=== PATIENT | female | born 1955 | race Caucasian/White ===

== ENCOUNTER 2020-12-20 09:33 | Outpatient (CLI) | payer BC, SELFPAY ==
--- NOTE | 2020-12-20 10:02 | ECHO_ITS ---
Patient Info Name: Stephanie Bhatia Age: 65 years : 1955 Gender: Female Ht: 66 in Wt: 225 lbs BSA: 2.22 m2 HR: 72 bpm BP: 183 / 91 mmHg Exam Date: 12/20/2020 10:09 AM Exam Location: [facility] Patient Status: Outpatient Admit Date: 12/20/2020 Staff Ordering Physician: Edis Howe DO Data Processing Mechanic: Vandana Bledsoe RDCS Attending Provider: Edis Howe DO Exam Type: CA echo doppler color flow Study Info Indications R00.2 - Palpitations Complete two-dimensional, color flow and Doppler transthoracic echocardiogram is performed. Summary 1. Complete two-dimensional, color flow and Doppler transthoracic echocardiogram is performed. 2. Left ventricular chamber dimension is normal. 3. Left ventricular systolic function is normal, estimated at 55-60%. 4. There is mildly increased left ventricular wall thickness. 5. The left ventricular diastolic function is grade I diastolic dysfunction. 6. E/e' 7 is not elevated. 7. Left atrial chamber dimension is mildly enlarged. 8. There is trace mitral valve regurgitation. 9. There is trace tricuspid valve regurgitation. 10. No pulmonary hypertension, estimated pulmonary arterial systolic pressure is 28 mmHg. Left Ventricle E/e' 7 is not elevated. Left ventricular chamber dimension is normal. Left ventricular systolic function is normal, estimated at 55-60%. There is mildly increased left ventricular wall thickness. The left ventricular diastolic function is grade I diastolic dysfunction. Right Ventricle Right ventricular chamber dimension is normal. Right ventricular systolic function is normal. Left Atria Left atrial chamber dimension is mildly enlarged. Right Atria Right atrial chamber dimension is normal. Aortic Valve The aortic valve is trileaflet. There is no aortic valve stenosis. There is no aortic valve regurgitation. Pulmonic Valve There is no pulmonic regurgitation. Mitral Valve There is no mitral valve stenosis. There is trace mitral valve regurgitation. Tricuspid Valve There is trace tricuspid valve regurgitation. No pulmonary hypertension, estimated pulmonary arterial systolic pressure is 28 mmHg. Pericardium/Pleural There is no pericardial effusion. Inferior Vena Cava Normal inferior vena cava with >50% collapse upon inspiration consistent with normal right atrial pressure, 5 mmHg. Aorta The aortic root size at the sinus of Valsalva is normal. Left Ventricular Outflow Tract Name Value Normal LVOT 2D LVOT Diameter 2.1 cm LVOT Doppler LVOT Peak Gradient 5 mmHg LVOT Mean Gradient 2 mmHg LVOT VTI 25 cm LVOT VTI/AV VTI Ratio 0.9 LVOT Stroke Volume 88 ml LVOT CO 5.5 l/min LVOT CI 2.5 l/min/m2 Pulmonic Valve Name Value Normal
--- NOTE | 2020-12-27 12:49 | WPDHOLTEREM ---
Holter/Event Monitor Holter/Event Monitor Date of procedure: 12/20/20 Procedure Type: 48 hour holter monitor Indications: Palpitations Conclusion: 1. 48 hour holter monitor on 12/20/20. 2. Underlying rhythm is sinus rhythm. HR range 57-140 bpm; average HR 82 bpm. 3. There are 17 premature supraventricular complexes. No supraventricular tachycardia. 4. There are 81 premature ventricular complexes. No ventricular tachycardia. 5. No sinoatrial or atrioventricular blocks. No significant pauses greater than 2 seconds. 6. No symptoms available for correlation.
== END 2020-12-20 09:34 | disposition home or self-care (01) ==
PROVIDERS: PCP Internal Medicine; Visit Provider Internal Medicine
DX: R00.2 Palpitations (principal)
CPT/HCPCS: 93225; 93226; 93306

== ENCOUNTER 2021-03-22 07:43 | Outpatient (CLI) | payer BC, SELFPAY ==
--- NOTE | ~2021-03-22 | US_ITS ---
EXAMINATION: US abdomen complete EXAM DATE: 03/22/2021 10:24 INDICATION: R14.0 - Abdominal distension . TECHNIQUE: Multiple grayscale and Doppler images of the complete abdomen were obtained (by a technolo gist who performed the scan) and subsequently reviewed. There is no prior study for comparison. FINDINGS: The abdominal aorta is normal in caliber. Visualized portion IVC is patent. The pancreatic head a nd body are normal in appearance. The pancreatic tail is not visualized. The liver has normal echogenicity and contour. There is a left liver lobe hyperechoic lesion measuri ng up to 10 mm. Liver lesions are nonspecific by ultrasound, however appearance to this is typical of a hemangioma. There is no evidence of intrahepatic biliary duct dilation. Portal venous flow was s een in the hepatopedal, normal direction and has normal Doppler waveform. Common bile duct measures 6 mm, which is normal. The gallbladder wall is normal in thickness, with ex pected amount of distention. No sonographic evidence of pericholecystic fluid. There is no cholelit hiases. Technologist performing exam reports patient did not demonstrate sonographic Lord's sign. Please note that this sign is less reliable in patients who have received pain medication. Right kidney: There is normal contour and echogenicity. It measures 11.6 x 5.2 x 4.8 centimeters. T here is a cystic region in the midpole with several septations, some portions of which are mildly thi ck. This measures 3.1 x 2.2 x 2.5 cm, Bosniak category 3 lesion. There is no hydronephrosis. Left kidney: There is normal contour and echogenicity. It measures 10.8 x 4.9 x 5.9 centimeters. T here are no focal renal lesions identified. There is no hydronephrosis. The spleen measures 11.4 centimeters and is morphologically normal. IMPRESSION: 1. Right renal complex cystic lesion, Bosniak category 3 (indeterminate). 2. Small left liver lobe lesion, indeterminate but most likely benign. 3. Consider abdomen MRI without and with contrast to further evaluate these. Reviewed, dictated and finalized at location A.
== END 2021-03-22 07:44 | disposition home or self-care (01) ==
LOC: ANHIMG 07:46
PROVIDERS: PCP Internal Medicine; Visit Provider Internal Medicine
DX: R14.0 Abdominal distension (gaseous) (principal); K76.89 Other specified diseases of liver
CPT/HCPCS: 76700

== ENCOUNTER 2021-04-25 16:35 | Outpatient (CLI) | payer BC, SELFPAY ==
--- NOTE | ~2021-04-25 | MR_ITS ---
EXAMINATION: MR abdomen wo/w con DATE: 04/25/2021 17:48 INDICATION: Kidney mass. TECHNIQUE: Magnetic resonance imaging (MRI) of the abdomen was performed without and with 20 mL Multi Prem intravenous contrast. Sequences included coronal T2-weighted FS FSE, coronal and axial FIESTA F S, coronal LAVA-flex, axial LAVA, axial T2-weighted FSE, axial T1-weighted dual-echo FSPGR, axial STI R FSE, and axial DWI. Postcontrast sequences included coronal LAVA-flex and a time course of axial LA VA. COMPARISON: Abdomen ultrasound 03/22/2021, CT abdomen and pelvis 03/12/2015 FINDINGS: There is a diffuse hepatic steatosis. There are cysts in the liver measuring up to 5 mm. The gallblad pallavi, spleen, pancreas, and adrenal glands are normal. There are cysts in the kidneys measuring up to 2.7 cm on the right. Two of the cysts in right kidney demonstrate thin septations without contrast en hancement. There are no dilated loops of bowel. There are no pathologically enlarged lymph nodes. The re is no free intraperitoneal fluid. IMPRESSION: 1. Benign cysts in the kidneys. Reviewed, dictated and finalized at location B.
[2021-04-25 17:10] LABS: Estimated Glomerular Filt Rate > 60
== END 2021-04-25 16:36 | disposition home or self-care (01) ==
LOC: ANHIMG 16:35
PROVIDERS: PCP Internal Medicine; Visit Provider Urology
DX: N28.1 Cyst of kidney, acquired (principal)
CPT/HCPCS: 74183; A9577

== ENCOUNTER 2022-01-11 08:26 | Outpatient (CLI) | payer MEDICARE, SELFPAY ==
--- NOTE | ~2022-01-11 | MM_ITS ---
EXAMINATION: MM screening krystal BI w carl HISTORY: Screening mammogram TECHNIQUE: Craniocaudal and mediolateral oblique 3-D tomosynthesis images were obtained and synthetic 2-D images were generated. CAD analysis was submitted and interpreted. COMPARISON: No prior mammogram is available for comparison at this institution. BREAST PARENCHYMAL COMPOSITION: There are scattered areas of fibroglandular density. FINDINGS: Bilateral mammographic asymmetries are noted including: There is a 3.5 x 7 mm circumscribed opacity in the lower inner right breast (craniocaudal Tomosynthes is 22/76). There is a circumscribed approximately 4.5 x 10 mm opacity in the anterior aspect of the mid to upper inner right breast (craniocaudal Tomosynthesis image 49/76). Possible mass in the outer mid right breast (craniocaudal Tomosynthesis image 36/76. IMPRESSION: 1. Bilateral mammographic asymmetries, possible masses 2. Bilateral diagnostic mammography is recommended, with ultrasound if required BI-RADS Category 0: Incomplete: Needs additional imaging evaluation. Reviewed, dictated and finalized at location A.
== END 2022-01-11 08:27 | disposition home or self-care (01) ==
PROVIDERS: PCP Internal Medicine; Visit Provider Internal Medicine
DX: Z12.31 Encounter for screening mammogram for malignant neoplasm of breast (principal); R92.8 Other abnormal and inconclusive findings on diagnostic imaging of breast
CPT/HCPCS: 77063; 77067

== ENCOUNTER 2022-04-16 14:08 | Outpatient (CLI) | payer MEDICARE, SELFPAY ==
--- NOTE | ~2022-04-16 | CT_ITS ---
EXAMINATION: CT LE RT wo con DATE: 04/16/2022 16:00 INDICATION: Right knee osteoarthritis. TECHNIQUE: Computed tomography (CT) of the right lower limb was performed without intravenous contras t. Automated exposure control and iterative reconstruction technique were employed. The dose-length p roduct was 1681.12 mGy-cm. COMPARISON: Right knee radiographs 10/17/2021 FINDINGS: The right hip demonstrate normal bone alignment. There is mild right hip osteoarthritis. Th ere is a lipoma between the iliopsoas and rectus femoris muscles. The right knee demonstrates severe osteoarthritis of the medial compartment, moderate osteoarthritis of patellofemoral compartment, and mild osteoarthritis of lateral compartment. There is a small knee joint effusion. The ankle demonstra hansa normal bone alignment. The talar dome is normal. IMPRESSION: 1. Severe right knee osteoarthritis. 2. Small right knee joint effusion. Reviewed, dictated and finalized at location A.
--- NOTE | 2022-04-16 14:46 | ECG_ITS ---
Measurements Intervals [place] Rate: 80 P: 67 VA: 177 QRS: 3 QRSD: 98 T: 60 QT: 402 QTc: 465 Interpretive Statements SINUS RHYTHM NO PREVIOUS ECG AVAILABLE FOR COMPARISON Electronically Signed On 04-17-2022 16:23:38 CDT by Juliette Sarah M.D.
[2022-04-16 15:01] LABS: Hematocrit 39.2 % (37.0-47.0); Hemoglobin 12.9 g/dL (12.0-15.0)
[2022-04-16 15:12] LABS: Albumin Level 4.5 g/dL (3.5-5.1); Estimated Glomerular Filt Rate > 60
== END 2022-04-16 14:09 | disposition home or self-care (01) ==
PROVIDERS: PCP Internal Medicine; Visit Provider Orthopaedic Surgery
DX: Z01.818 Encounter for other preprocedural examination (principal); M17.0 Bilateral primary osteoarthritis of knee; M25.461 Effusion, right knee
CPT/HCPCS: 36415; 73700; 82040; 82565; 85014; 85018; 93005

== ENCOUNTER 2022-05-23 11:51 | Outpatient (CLI) | payer MEDICARE, SELFPAY ==
[2022-05-23 12:54] LABS: Basophils Absolute Auto 0.1 K/mm3 (0.0-0.1); Basophils Percent Auto 0.8 % (0.2-1.2); Eosinophils Percent Auto 0.6 % (0-4.4); Hematocrit 38.6 % (37.0-47.0); Immature Granulocyte Absolute 0.04 K/mm3 (0.00-0.031); Immature Granulocyte Percent A 0.6 % (0-0.5); Lymphocytes Absolute Auto 2.24 K/mm3 (0.9-3.2); Lymphocytes Percent Auto 35.5 % (18.3-44.2); Mean Corpuscular HGB Conc 33.7 g/dl (32-36); Mean Corpuscular Hemoglobin 31.3 pg (26-34); Mean Corpuscular Volume 92.8 fl (80-100); Mean Platelet Volume 9.2 fl (7.4-10.4); Monocytes Absolute Auto 0.5 K/mm3 (0.1-0.6); Monocytes Percent Auto 7.8 % (2.6-8.5); Neutrophils Absolute Auto 3.5 K/mm3 (1.3-6.7); Neutrophils Percent Auto 54.7 % (45.5-73.1); Platelet Count Result 382 k/mm3 (150-375); Red Blood Count 4.16 M/mm3 (4.2-5.4); Red Cell Distribution Width 12.6 % (11.5-14.5); White Blood Count 6.3 K/mm3 (4.5-10.0)
[2022-05-23 13:04] LABS: Albumin Level 4.5 g/dL (3.5-5.1)
[2022-05-23 13:07] LABS: Anion Gap 12 mmol/L (8-16); Blood Urea Nitrogen 19 mg/dL (7-17); Calcium 9.7 mg/dL (8.4-10.2); Carbon Dioxide 26 mmol/L (22-30); Chloride 99 mmol/L (98-107); Estimated Glomerular Filt Rate > 60; Glucose 103 mg/dL (65-110); Potassium 3.7 mmol/L (3.4-5.0); Sodium 137 mmol/L (137-145)
[2022-05-23 13:31] LABS: Urine Cotinine NEGATIVE
[2022-05-23 14:15] LABS: Hemoglobin A1C 5.8 % (<5.7)
== END 2022-05-23 11:52 | disposition home or self-care (01) ==
LOC: ANHSURGERY 11:56
PROVIDERS: Anesthesiology; PCP Internal Medicine; Visit Provider Orthopaedic Surgery
DX: M17.11 Unilateral primary osteoarthritis, right knee (principal); Z79.899 Other long term (current) drug therapy; Z01.818 Encounter for other preprocedural examination
CPT/HCPCS: 80048; 80307; 82040; 83036; 85025; 87081

== ENCOUNTER 2022-06-14 00:57 | Day surgery (SDC) | payer MEDICARE, SELFPAY ==
--- NOTE | 2022-05-23 11:50 | PC.NURSE ---
Report to the Outpatient Waiting Room, entrance under the green pavilion located off [facility], at time on date . OR Time: . Time changes happen often and if your time is changed the preop area will call you the afternoon before. - You and your visitor will be asked to self-screen and do not enter if you have any COVID symptoms. - Only one visitor and NO children visitors are allowed at this time. - The patient visitor is requested to leave or wait in car when not with patient due to restrictions. - A mask is required within the hospital. Patients may have clear liquids (water, carbonated beverages, clear teas, apple juice) until 3 hours prior to surgery (0430 AM) with a maximum of 20 ounces. - No food from midnight until time of surgery Take the following medications with a SIP of water the morning of surgery: _FLUOXETINE_ Medications to discontinue per ANESTHESIA _MULTIVITAMIN 3 DAYS PRIOR TO SURGERY, Date to take last dose _ Please no make-up, nail ukrainian, hairspray, perfume, deodorant, or body powder the day of surgery. No jewelry (including any body piercings) or valuables the day of surgery, leave them at home. Please take a shower or bath the night before, or the morning of, surgery with an antibacterial soap. Wear comfortable, loose fitting clothing. - Jewelry must be removed prior to entering the operating room. Rings and piercings that are not removed may be cut off. - The hospital will not accept responsibility for valuables. - Please leave all valuables, including medications, at home the day of surgery. If you are going home after surgery, a licensed m48/m60 tank driver must drive you home. - NO public transportation without another adult. - We recommend that an adult stay with you for 24 hours following discharge. - We also recommend that you do not drive, make important decision, drink alcoholic beverages, or take any drugs that were not prescribed by your health care provider for at least 24 hours after your discharge time. Follow any additional instructions given to you from your surgeon. If you or anyone in your household have experienced Covid symptoms in the past week, please notify your surgeon or the nurse liaison at the phone number below for possible testing. Instructions given to ___PT and asked if any additional questions and then verbalized understanding. Patient advised to call surgeon office or pre surgery nurse liaison [phone] if any additional questions.
--- NOTE | 2022-05-23 11:52 | PC.NURSE ---
PRE-OP INSTRUCTIONS, PLEASE READ CAREFULLY Report to the Outpatient Waiting Room, entrance under the green pavilion located off [facility], at time _0600_ on date _06/14/22_. OR Time: _0730_. Time changes happen often and if your time is changed the preop area will call you the afternoon before. - You and your visitor will be asked to self-screen and do not enter if you have any COVID symptoms. - A mask is required within the hospital. - Only one visitor and NO children visitors are allowed at this time. - The patient visitor is requested to leave or wait in car when not with patient due to restrictions. - VISITING HOURS 10AM-8PM, PARK IN FRONT PARKING LOT AND USE HOSPITAL ENTRANCE 1 Patients may have clear liquids (water, carbonated beverages, clear teas, apple juice) until 3 hours prior to surgery (0430 AM) with a maximum of 20 ounces. - No food from midnight until time of surgery Take the following medications with a SIP of water the morning of surgery: _FLUOXETINE, PAIN MED IF NEEDED _ Medications to discontinue per ANESTHESIA - _MULTIVITAMIN 3 DAYS PRIOR TO SURGERY, Date to take last dose 06/10/22_ Please no make-up, nail irish, hairspray, perfume, deodorant, or body powder the day of surgery. No jewelry (including any body piercings) or valuables the day of surgery, leave them at home. Please take a shower or bath the night before, or the morning of, surgery with an antibacterial soap. Wear comfortable, loose fitting clothing. - Jewelry must be removed prior to entering the operating room. Rings and piercings that are not removed may be cut off. - The hospital will not accept responsibility for valuables. - Please leave all valuables, including medications, at home the day of surgery. If you are going home after surgery, a licensed driver's education instructor must drive you home. - NO public transportation without another adult. - We recommend that an adult stay with you for 24 hours following discharge. - We also recommend that you do not drive, make important decision, drink alcoholic beverages, or take any drugs that were not prescribed by your health care provider for at least 24 hours after your discharge time. Follow any additional instructions given to you from your surgeon. If you or anyone in your household have experienced Covid symptoms in the past week, please notify your surgeon or the nurse liaison at the phone number below for possible testing. Telephone instructions given to ____PT and asked if any additional questions and then verbalized understanding. Patient advised to call surgeon office or pre surgery nurse liaison [phone] if any additional questions.
[2022-05-23 12:14] VITALS: BP 158/88; PULSE 62; RESP 18; TEMP 37.1; O2SAT 97; BMI 35.9
--- NOTE | 2022-06-13 13:55 | WPDANESEPPF ---
Anes - Initial Pre Proc Eval Procedure: Operation Date: 06/14/22 07:30 Proposed Procedures p Right Custom Total Knee Arthroplasty - Clyde Gastelum MD Date/Time: 06/13/22 13:55 Surgeon: Clyde Gastelum MD Pre Op Diagnosis: primary OA right knee Patient Data Age: 67 Gender: F Height: 1.68 m Weight: 100.9 kg Last Vital Signs Temp 37.1 C 05/23/22 12:14 Pulse 62 05/23/22 12:14 Resp 18 05/23/22 12:14 BP 158/88 H 05/23/22 12:14 Pulse Ox 97 05/23/22 12:14 O2 Del Method Room Air 05/23/22 12:14 Allergies Allergy/AdvReac Type Severity Reaction Status Date / Time No Known Allergies Allergy Mild Verified 06/14/22 07:08 Home Medications Medication Instructions Recorded Confirmed Type multivitamin 1 tablet PO DAILY 01/09/21 05/23/22 History fluoxetine 20 mg capsule See Rx Instructions .Route 02/13/22 05/23/22 Rx .COMPLEX #90 caps triamterene 37.5 1 cap PO DAILY #90 caps 02/13/22 05/23/22 Rx mg-hydrochlorothiazide 25 mg capsule atorvastatin 80 mg tablet 80 mg PO DAILY #90 tabs 03/24/22 05/23/22 Rx tramadol 50 mg tablet 50 mg PO DAILY PRN pain #30 tabs 03/26/22 05/23/22 Rx lisinopril 20 mg tablet 20 mg PO DAILY #90 tabs 05/14/22 05/23/22 Rx acetaminophen 500 mg tablet 1,000 mg PO Q6H PRN Pain 05/23/22 05/23/22 History amoxicillin 500 mg capsule 2,000 mg PO ONCE #4 caps 05/23/22 05/23/22 Rx coenzyme Q10 100 mg capsule 100 mg PO DAILY 05/23/22 05/23/22 History (CoQ-10) cyclobenzaprine 10 mg tablet 10 mg PO TID PRN Muscle Spasm 05/23/22 05/23/22 History esomeprazole magnesium 20 mg 20 mg PO DAILY 05/23/22 05/23/22 History capsule,delayed release (Nexium) Patient hx anesthesia problems: none Family hx anesthesia problems: none Results Review: All pre-operative results and documents have been reviewed as part of the pre-operative evaluation. [facility] Past Medical History Medical History (Updated 06/13/22 @ 13:56 by Alonso Hernandez MD) Acid reflux Arthritis of both knees Depression Essential hypertension Hyperglycemia Hyperlipidemia MVP (mitral valve prolapse) Obesity Palpitations Trigger finger Surgical History Surgical History H/O: hysterectomy Social History Social History Smoking packs per day: 1.5 Smoking cigarettes per day: 30.0 Years smoked: 30 Smoking pack-years: 45.00 Smoking status: Former smoker Tobacco type: cigarettes Second hand tobacco smoke exposure: No Smoking end date: 09/09/12 Additional smoking assessment comments: PT DENIES ALL FORMS OF TOBACCO USE Alcohol intake: current Alcohol use details: STATES 6-10 DRINKS/WEEK Substance use: never Substance use type: does not use Living arrangements: with roommate(s) Spiritual care concerns: No Anes - Eval Final PreProcedure Day of Procedure 06/13/22 13:55 Patient weight: obese Heart: regular rate and rhythm Lungs: clear to auscultation and normal air movement Airway: Mallampati scale class II Neurological: alert and oriented Last oral intake: >/= 8 hours ASA classification: III Emergent: no Anesthetic plan: proceed Anesthesia type and monitoring: general LMA Results Review: All pre-operative results and documents have been reviewed as part of the pre-operative evaluation. Informed Consent: The patient's anesthetic plan and its attendant risks and benefits were discussed with the patient/family/POA. Questions were solicited and answers provided to the satisfaction of the patient/family/POA.
--- NOTE | 2022-06-13 13:56 | WPDANESPNB ---
Anes - Peripheral Nerve Block Date/Time: 06/13/22 13:56 I have discussed with the patient/family/POA the placement of a peripheral nerve block for post-operative pain management, including associated risks, benefits, complications, and side effects. Alternative methods of post-operative analgesia were detailed. Questions were solicited and answers provided to the satisfaction of the patient/family/POA. Time-Out: A pre-procedural Time-Out was completed immediately before starting the procedure and confirmed: Patient Identification, Site, Procedure, Patient Position and the Availability of Requisite Equipment. Clinical Indications: Acute post-operative pain management requested by the operative surgeon. Nerve Block Insertion Note Needle: 22 gauge, stimulating, insulated echogenic needle. Procedure start time:: 725 Procedure end time:: 730
[2022-06-14] VITALS (16 sets, daily range): BP systolic 130–174; BP diastolic 62–89; PULSE 70–97; RESP 12–18; TEMP 36.3–37.1; O2SAT 93–100
--- NOTE | ~2022-06-14 | XR_ITS ---
EXAMINATION: XR knee RT 2V DATE: 06/14/2022 10:33 INDICATION: Total right knee arthroplasty. Postop. TECHNIQUE: 2 views of right knee were obtained. COMPARISON: None. FINDINGS: There is a total right knee arthroplasty with patellar resurfacing in near-anatomic alignme nt. No fracture. There is gas in the knee joint and soft tissues, consistent with recent surgery. IMPRESSION: 1. Total right knee arthroplasty in near-anatomic alignment. Reviewed, dictated and finalized at location A.
[2022-06-14] MEDS: LACTATED RINGERS 1,000 ML 30 ML IV CONT ×2 (06:49→10:15)
[2022-06-14] MEDS: ACETAMINOPHEN 500 MG TABLET 1000 MG PO (06:49)
[2022-06-14] MEDS: TRANEXAMIC ACID 1,000MG/ISO100 1,000 MG/100 ML BAG 200 MG IVPB (06:51)
--- NOTE | 2022-06-14 07:15 | WPDHPUPDATE1 ---
History and Physical Update Update Date/Time: 06/14/22 07:15 History and Physical has been reviewed, including an updated exam of the patient. There are NO changes in the patient's condition. Risks, benefits, and alternatives have been discussed and questions answered. Patient agrees to proceed with procedure.
[2022-06-14] MEDS: ceFAZolin 2 GM/D5W 50 ML 2 GM/50 ML BAG IVPB ×3 (07:33→22:09)
--- NOTE | 2022-06-14 07:34 | WPDANESPNB ---
Anes - Peripheral Nerve Block Date/Time: 06/14/22 07:34 I have discussed with the patient/family/POA the placement of a peripheral nerve block for post-operative pain management, including associated risks, benefits, complications, and side effects. Alternative methods of post-operative analgesia were detailed. Questions were solicited and answers provided to the satisfaction of the patient/family/POA. Time-Out: A pre-procedural Time-Out was completed immediately before starting the procedure and confirmed: Patient Identification, Site, Procedure, Patient Position and the Availability of Requisite Equipment. Clinical Indications: Acute post-operative pain management requested by the operative surgeon. Nerve Block Insertion Note Anes-nerve block: adductor canal right Patient position: supine Skin prep: chlorhexidine Needle: 22 gauge, stimulating, insulated echogenic needle. Needle length: 80 mm Technique: ultrasound Technique comment: in plane Injectate: bupivacaine 0.5% with epi 5 mcg/ml (30cc) Observations: tolerated well Complications: none Procedure start time:: 725 Procedure end time:: 730
[2022-06-14] MEDS: fentaNYL CITRATE INJ (*CRX) 100 MCG/2 ML VIAL 25 MCG IV PUSH ×8 (10:35→11:59)
[2022-06-14] MEDS: diphenhydrAMINE HCl INJ 50 MG/ML VIAL 25 MG IV PUSH (10:56)
--- NOTE | 2022-06-14 12:03 | SUR.PHASEI ---
1130 PT MEETS ANESTHESIA DISCHARGE CRITERIA TO LEAVE PACU. NO POST OP ROOM AVAILABLE AT THIS TIME. IN A HOLDING PATTERN.
[2022-06-14] MEDS: SODIUM CHLORIDE 0.9% IV 1,000 ML 125 ML IV CONT (13:44)
[2022-06-14] MEDS: oxyCODONE HCL (*CRX) 5 MG TAB IR PO ×3 (13:48→22:09)
--- NOTE | 2022-06-14 15:01 | ADMGEN ---
This patient, Stephanie Bhatia, was admitted to 2 Medical Room 260-01. Patient/family oriented to hospital policies and general routines including ID bracelet, bed and alarms, visiting hours, pain management, procedures, bathroom and other care routines, personal items, smoking policy, room service/diet, and visiting hours. Information on how to activate the Rapid Response Team has been discussed. Patient/Family are encouraged to report perceived risks to care and to ask questions if they do not understand what they are told or what they should do. Patient up to chair with no complaints at this time.
--- NOTE | 2022-06-14 16:34 | P.OP_ITS ---
Procedure Note - Detailed Date of Procedure 06/14/22 Pre-op Diagnosis primary OA right knee Post-op Diagnosis Same Procedure Performed Total knee arthroplasty, right Surgeon Clyde Gastelum MD Tractor Operator Ilana Baig PA-C Anesthesia General and Regional (Subsartorial block.) Findings Custom TKA. Excellent bone quality. No releases needed. Description of Procedure Preoperative antibiotics were given. The limb was prepped and draped in the usual sterile fashion with a well-padded tourniquet high on the thigh. The limb was exsanguinated and the tourniquet inflated to 300 mmHg. A longitudinal incision was created just medial to the patella. A trivector approach to the knee was performed. Arthrotomy was taken down through the joint capsule. No significant releases were initially taken. The femur was exposed and the F1 jig was applied. The coring tool was used to remove the cartilage for the F2 jig to sit flush with the bone. The jig was pinned and the distal cut carefully taken. Caliper measurements confirmed appropriate bony resections according to the preoperative templated plan. The F4 cutting jig for the femur was applied, at the standard rotation. The AP and anterior chamfer cuts were taken. The F5 jig was applied and the posterior chamfer cuts were taken. The tibia was prepared using the T1 jig, after removing cartilage for the jig contact points. Proper alignment was checked with the alignment jorje. The tibia was cut using the T1u guide. Gap balancing was performed. Gap measurements were taken and the knee was trialed. Excellent alignment and soft tissue balancing was confirmed. The posterior cruciate ligament was recessed along the proximal tibia. The patella was cut for resurfacing. Three lug holes were drilled. Meniscal remnants were removed. The trial components were assembled. Excellent range of motion and proper soft tissue balancing were confirmed throughout the full range of motion. Patellar tracking was excellent. The knee was copiously irrigated periodically throughout the procedure. The real implants were cemented into position. Excess cement was carefully removed. The wound was closed in layers with interrupted #1 Vicryl suture, 2-0 strata fix suture, 0 strata fix suture, 2-0 strata fix suture. Steri-Strips placed on the skin with the knee flexed. Sterile bulky dressing applied. The patient was brought to the recovery room in stable condition. There were no complications. Physician executive marketing assistant, Ilana Baig PA-C, required for surgery; including patient positioning, draping, tissue retraction, maintaining instrument position, cement removal, wound closure, and dressing placement. Implants Conformis Custom total knee arthroplasty. Cemented. Cruciate retaining. 8C insert. 32 mm oval patella. Estimated Blood Loss -100.0 Tourniquet Time 90 Drains No Complications No immediate complications Condition Stable Disposition PACU [facility] Billing Surgery - Charge Forward: Surgery Billing
[2022-06-14] MEDS: SENNA/DOCUSATE SODIUM TABLET 2 TAB PO (17:08)
[2022-06-14] MEDS: MELOXICAM 7.5 MG TABLET PO (17:09)
[2022-06-14] MEDS: ASPIRIN 81 MG ENTERIC TABLET PO (17:09)
[2022-06-14] MEDS: ATORVASTATIN 40 MG TABLET 80 MG PO (20:17)
[2022-06-15] MEDS: oxyCODONE HCL (*CRX) 5 MG TAB IR PO ×2 (02:09→06:40)
[2022-06-15 03:33] VITALS: BP 127/63; PULSE 72; RESP 17; TEMP 36.8; O2SAT 95
[2022-06-15 05:22] LABS: Basophils Percent Auto 0.2 % (0.2-1.2); Hematocrit 30.6 % (37.0-47.0); Immature Granulocyte Absolute 0.02 K/mm3 (0.00-0.031); Immature Granulocyte Percent A 0.2 % (0-0.5); Lymphocytes Absolute Auto 2.09 K/mm3 (0.9-3.2); Lymphocytes Percent Auto 22.3 % (18.3-44.2); Mean Corpuscular HGB Conc 32.7 g/dl (32-36); Mean Corpuscular Hemoglobin 30.8 pg (26-34); Mean Corpuscular Volume 94.2 fl (80-100); Mean Platelet Volume 9.1 fl (7.4-10.4); Monocytes Absolute Auto 0.9 K/mm3 (0.1-0.6); Monocytes Percent Auto 9.9 % (2.6-8.5); Neutrophils Absolute Auto 6.3 K/mm3 (1.3-6.7); Neutrophils Percent Auto 67.4 % (45.5-73.1); Platelet Count Result 317 k/mm3 (150-375); Red Blood Count 3.25 M/mm3 (4.2-5.4); Red Cell Distribution Width 12.9 % (11.5-14.5); White Blood Count 9.4 K/mm3 (4.5-10.0)
[2022-06-15 05:33] LABS: Anion Gap 12 mmol/L (8-16); Blood Urea Nitrogen 19 mg/dL (7-17); Calcium 8.2 mg/dL (8.4-10.2); Carbon Dioxide 28 mmol/L (22-30); Chloride 97 mmol/L (98-107); Estimated CRCL calculation 82 ml/min; Estimated Glomerular Filt Rate > 60; Glucose 113 mg/dL (65-110); Potassium 2.9 mmol/L (3.4-5.0); Sodium 137 mmol/L (137-145)
[2022-06-15] MEDS: ceFAZolin 2 GM/D5W 50 ML 2 GM/50 ML BAG IVPB (06:42)
--- NOTE | 2022-06-15 08:07 | PM.DS ---
DS: Admitting Diagnosis Discharge Date 06/15/22 Admitting Diagnosis OA knee Right DS: Discharge Diagnosis Discharge Diagnosis (1) Status post total right knee replacement: Code(s): Z96.651 - Presence of right artificial knee joint Status: Acute Assessment and Plan: Postop day 1: Right total knee arthroplasty. Patient tolerated procedure well. No complications. Pain manageable with pain medication. No numbness or tingling. We had a lengthy discussion regarding postoperative wound care, limitations, expectations, and exercises. Patient shows good understanding. She has had initial physical therapy and is tolerating it well. DVT prophylaxis: 81 mg baby aspirin b.i.d. for 14 days. Pain medication: Percocet. Prednisone. Meloxicam. Patient has followup appointment with Dr. Gastelum in 3 weeks. DS: Summary Hospital Course Reason for hospitalization: Total knee arthroplasty Hospital Course: Patient tolerated procedure well. Has had initial PT/OT. No complications. Pain well managed. Status at Discharge Functional status at discharge: uses cane/walker Overall status at discharge: patient is progressing back to baseline Time Spent with Patient Time attestation: Total time spent providing and/or coordinating discharge services: Exam Narrative: Overweight 67 y/o female. Resting comfortably in chair. No acute distress. A&O x3. Wearing compression socks bilaterally. Dressing intact with no drainage. Moderate swelling. No ecchymosis. No erythema. No hematoma. Good early range of motion. Calf nontender. Neurologic status intact. No varicosities. Distal pulses palpable. DS: Data Data Completed and Pending Labs on day of discharge: Labs from last 24 hours 06/15/22 06/15/22 05:03 05:03 WBC 9.4 RBC 3.25 L Hgb 10.0 L D Hct 30.6 L MCV 94.2 MCH 30.8 MCHC 32.7 RDW 12.9 Plt Count 317 MPV 9.1 Immature Gran % (Auto) 0.2 Neut % (Auto) 67.4 Lymph % (Auto) 22.3 [place] % (Auto) 9.9 H Eos % (Auto) 0.0 Baso % (Auto) 0.2 Lymph # (Auto) 2.09 [place] # (Auto) 0.9 H Eos # (Auto) 0.0 Baso # (Auto) 0.0 Abs Immat Gran (auto) 0.02 Absolute Neuts (auto) 6.3 Absolute Nucleated RBC 0.0 Nucleated RBC % 0.0 Sodium 137 Potassium 2.9 L Chloride 97 L Carbon Dioxide 28 Anion Gap 12 BUN 19 H Creatinine 0.70 Estim Creat Clear Calc 82 Estimated GFR > 60 Glucose 113 H Calcium 8.2 L Discharge Plan Discharge Patient Disposition: Home, Self-Care Discharge Instructions: See green instruction sheets Follow-up/Referrals: Ilana Baig PA [Physician Timber Estimator] - Discharge Medications: New meloxicam 15 mg tablet 15 mg PO DAILY Qty: 30 0RF Rx Instructions: Cut in half. Take 1/2 in morning and 1/2 at night. Take with food. Stop if stomach upset. prednisone 5 mg tablet 5 mg PO DAILY 21 Days Qty: 21 0RF aspirin 81 mg tablet,delayed release (DR/EC) 81 mg PO BID 14 Days Qty: 28 0RF oxycodone-acetaminophen 5-325 mg tablet 1 - 2 tablet PO Q4-6H MDD 6 PRN (Reason: pain) Qty: 30 0RF Continued tramadol 50 mg tablet 50 mg PO DAILY PRN (Reason: pain) Qty: 30 0RF multivitamin Tablet 1 tablet PO DAILY Label Comments: HS cyclobenzaprine 10 mg Tablet 10 mg PO TID PRN (Reason: Muscle Spasm) esomeprazole magnesium [Nexium] 20 mg Capsule,Delayed Release(Dr/Ec) 20 mg PO DAILY Label Comments: QAM coenzyme Q10 [CoQ-10] 100 mg Capsule 100 mg PO DAILY Label Comments: HS acetaminophen 500 mg Tablet 1,000 mg PO Q6H PRN (Reason: Pain) fluoxetine 20 mg capsule See Rx Instructions .ROUTE .COMPLEX Qty: 90 1RF Dose Instruction: TAKE 1 CAPSULE BY MOUTH EVERY DAY Label Comments: QAM Rx Instructions: TAKE 1 CAPSULE BY MOUTH EVERY DAY triamterene-hydrochlorothiazid 37.5-25 mg capsule 1 cap PO DAILY Qty: 90 1RF
--- NOTE | 2022-06-15 08:43 | P.PNAN_ITS ---
Anes - Prog Note Post-Op Date/Time: 06/15/22 08:43 Cardiovascular status: normal Respiratory status: normal Airway patency: baseline Mental status: baseline Post-Op hydration status: normal Vital Signs: Last Vital Signs Temp 98.2 F 06/15/22 03:33 Pulse 72 06/15/22 03:33 Resp 17 06/15/22 03:33 BP 127/63 06/15/22 03:33 Pulse Ox 95 06/15/22 03:33 O2 Del Method Room Air 06/14/22 20:00 O2 Flow Rate 2 06/14/22 13:39 Pain Score (VAS): 0 I/O: Intake & Output 06/14/22 06/15/22 06/15/22 23:59 07:59 15:59 Intake Total 440 250 Balance 440 250 Laboratory Tests 06/15/22 05:03 06/15/22 05:03 06/15/22 06/15/22 05:03 05:03 WBC 9.4 RBC 3.25 L Hgb 10.0 L D Hct 30.6 L MCV 94.2 MCH 30.8 MCHC 32.7 RDW 12.9 Plt Count 317 MPV 9.1 Immature Gran % (Auto) 0.2 Neut % (Auto) 67.4 Lymph % (Auto) 22.3 [place] % (Auto) 9.9 H Eos % (Auto) 0.0 Baso % (Auto) 0.2 Lymph # (Auto) 2.09 [place] # (Auto) 0.9 H Eos # (Auto) 0.0 Baso # (Auto) 0.0 Abs Immat Gran (auto) 0.02 Absolute Neuts (auto) 6.3 Absolute Nucleated RBC 0.0 Nucleated RBC % 0.0 Sodium 137 Potassium 2.9 L Chloride 97 L Carbon Dioxide 28 Anion Gap 12 BUN 19 H Creatinine 0.70 Estim Creat Clear Calc 82 Estimated GFR > 60 Glucose 113 H Calcium 8.2 L Post-procedural complaints: none Patient Feedback: Patient satisfied with anesthetic care.
[2022-06-15 08:51] VITALS: RESP 18; O2SAT 98
[2022-06-15] MEDS: SENNA/DOCUSATE SODIUM TABLET 2 TAB PO (08:59)
[2022-06-15] MEDS: TRIAMTERENE 37.5 MG/HCTZ 25 MG (MAXZIDE) TABLET 1 TAB PO (08:59)
[2022-06-15] MEDS: polyethylene glycoL 3350 17 GM POWD.PACK PO (08:59)
[2022-06-15] MEDS: lisinopriL 20 MG TABLET PO (08:59)
[2022-06-15] MEDS: MELOXICAM 7.5 MG TABLET PO (09:00)
[2022-06-15] MEDS: FLUoxetine HCL 20 MG CAPSULE PO (09:00)
[2022-06-15] MEDS: PANTOPRAZOLE 40 MG TABLET PO (09:00)
[2022-06-15] MEDS: predniSONE 5 MG TABLET PO (09:00)
[2022-06-15] MEDS: ASPIRIN 81 MG ENTERIC TABLET PO (09:00)
[2022-06-15] MEDS: oxyCODONE HCL (*CRX) 5 MG TAB IR 10 MG PO (10:37)
[2022-06-15] MEDS: POTASSIUM CHLORIDE 20 MEQ TABLET 40 MEQ PO (11:20)
== END 2022-06-15 12:25 | disposition home or self-care (01) ==
LOC: ANHSURGERY 06:11 → ANH2MED 06-15 08:00
PROVIDERS: Physician Assistant Surgical; PCP Internal Medicine; Visit Provider Orthopaedic Surgery
PROC: (CPT 27447; principal; 2022-06-14 07:30)
DX: M17.11 Unilateral primary osteoarthritis, right knee (principal); E78.5 Hyperlipidemia, unspecified; K21.9 Gastro-esophageal reflux disease without esophagitis; Z87.891 Personal history of nicotine dependence
CPT/HCPCS: 27447; 36415; 73560; 80048; 85025; 86850; 86900; 86901; 97110; 97116; 97161; 97165; 97530; 97535; A9270; C1713; C1776; J0131; J0171; J0690; J1100; J1170; J1200; J1885; J2250; J2270; J2405; J2704; J2795; J3010; J7030; J7120; J7512

== ENCOUNTER 2022-08-01 11:19 | Outpatient (CLI) | payer MEDICARE, SELFPAY ==
[2022-08-01 11:55] LABS: Hemoglobin 12.2 g/dL (12.0-15.0)
[2022-08-01 12:06] LABS: Albumin Level 4.6 g/dL (3.5-5.1); Estimated Glomerular Filt Rate > 60; Glucose 107 mg/dL (65-110)
[2022-08-01 12:09] LABS: Urine Cotinine NEGATIVE
[2022-08-01 12:11] LABS: Hemoglobin A1C 5.8 % (<5.7)
== END 2022-08-01 11:20 | disposition home or self-care (01) ==
PROVIDERS: PCP Internal Medicine; Visit Provider Physician Assistant Surgical
DX: E78.5 Hyperlipidemia, unspecified (principal); I34.1 Nonrheumatic mitral (valve) prolapse; R73.9 Hyperglycemia, unspecified; I10 Essential (primary) hypertension; M17.0 Bilateral primary osteoarthritis of knee; Z79.899 Other long term (current) drug therapy
CPT/HCPCS: 80307; 82040; 82565; 82947; 83036; 85014; 85018

== ENCOUNTER 2022-08-06 15:38 | Outpatient (CLI) | payer MEDICARE, SELFPAY ==
--- NOTE | ~2022-08-06 | CT_ITS ---
EXAMINATION: CT LE LT wo con DATE: 08/06/2022 16:04 INDICATION: Left knee osteoarthritis. TECHNIQUE: Computed tomography (CT) of the left lower limb was performed without intravenous contrast . Automated exposure control and iterative reconstruction technique were employed. The dose-length pr oduct was 2139.46 mGy-cm. COMPARISON: Left knee radiographs 10/17/2021 FINDINGS: Left hip demonstrates mild osteoarthritis. Left knee demonstrates severe osteoarthritis of the medial compartment and mild osteoarthritis of the lateral and patellofemoral compartments. There is chondrocalcinosis of the menisci. There is a small knee joint effusion. IMPRESSION: 1. Severe left knee osteoarthritis. 2. Small left knee joint effusion. 3. Mild left hip osteoarthritis. Reviewed, dictated and finalized at location A. LE CARD MAKER
== END 2022-08-06 15:39 | disposition home or self-care (01) ==
PROVIDERS: PCP Internal Medicine; Visit Provider Physician Assistant Surgical
DX: M17.12 Unilateral primary osteoarthritis, left knee (principal); M25.462 Effusion, left knee; M16.12 Unilateral primary osteoarthritis, left hip
CPT/HCPCS: 73700

== ENCOUNTER 2022-08-28 13:15 | Outpatient (CLI) | payer MEDICARE, SELFPAY ==
[2022-08-28 15:07] LABS: Influenza A QL RT-PCR Negative (Negative); Influenza B QL RT-PCR Negative (Negative); SARS-CoV-2 RNA PCR Negative
== END 2022-08-28 13:16 | disposition home or self-care (01) ==
LOC: ANHLAB 13:18
PROVIDERS: PCP Internal Medicine; Visit Provider Internal Medicine
DX: R50.9 Fever, unspecified (principal); Z20.822 Contact with and (suspected) exposure to COVID-19
CPT/HCPCS: 87636

== ENCOUNTER 2022-10-18 09:18 | Outpatient (CLI) | payer MEDICARE, SELFPAY ==
[2022-10-18 09:49] LABS: Basophils Percent Auto 0.6 % (0.2-1.2); Eosinophils Absolute Auto 0.1 K/mm3 (0-0.3); Eosinophils Percent Auto 1.9 % (0-4.4); Hematocrit 37.1 % (37.0-47.0); Immature Granulocyte Absolute 0.01 K/mm3 (0.00-0.031); Immature Granulocyte Percent A 0.2 % (0-0.5); Lymphocytes Absolute Auto 1.87 K/mm3 (0.9-3.2); Lymphocytes Percent Auto 36.2 % (18.3-44.2); Mean Corpuscular HGB Conc 32.3 g/dl (32-36); Mean Corpuscular Hemoglobin 30.2 pg (26-34); Mean Corpuscular Volume 93.5 fl (80-100); Monocytes Absolute Auto 0.4 K/mm3 (0.1-0.6); Monocytes Percent Auto 7.4 % (2.6-8.5); Neutrophils Absolute Auto 2.8 K/mm3 (1.3-6.7); Neutrophils Percent Auto 53.7 % (45.5-73.1); Platelet Count Result 373 k/mm3 (150-375); Red Blood Count 3.97 M/mm3 (4.2-5.4); Red Cell Distribution Width 12.6 % (11.5-14.5); White Blood Count 5.2 K/mm3 (4.5-10.0)
[2022-10-18 10:03] LABS: Albumin Level 4.4 g/dL (3.5-5.1)
[2022-10-18 10:06] LABS: Anion Gap 4 mmol/L (8-16); Blood Urea Nitrogen 23 mg/dL (7-17); Calcium 9.2 mg/dL (8.4-10.2); Carbon Dioxide 31 mmol/L (22-30); Chloride 99 mmol/L (98-107); Estimated Glomerular Filt Rate > 60; Glucose 106 mg/dL (65-110); Potassium 4.3 mmol/L (3.4-5.0); Sodium 134 mmol/L (137-145)
[2022-10-18 10:15] LABS: Urine Cotinine NEGATIVE
== END 2022-10-18 09:19 | disposition home or self-care (01) ==
LOC: ANHSURGERY 09:22
PROVIDERS: Anesthesiology; PCP Internal Medicine; Visit Provider Orthopaedic Surgery
DX: Z01.812 Encounter for preprocedural laboratory examination (principal); M17.12 Unilateral primary osteoarthritis, left knee; I10 Essential (primary) hypertension
CPT/HCPCS: 80048; 80307; 82040; 85025; 86850; 86900; 86901; 87081

== ENCOUNTER 2022-10-25 00:47 | Day surgery (SDC) | payer MEDICARE, SELFPAY ==
--- NOTE | 2022-10-16 10:23 | PC.NURSE ---
Report to the Outpatient Waiting Room, entrance under the green pavilion located off [facility], at time _0600 on date __10/25/22 . Planned Procedure Time: __0730 . Time changes happen often and if your time is changed the preop area will call you the afternoon before. - You and your visitor will be asked to self-screen and do not enter if you have any COVID symptoms. - Only one visitor is requested with a max of two and NO children visitors are allowed at this time. - The patient visitor may be requested to leave or wait in car when not with patient due to distancing restrictions. - A mask is optional within the hospital at this time. Patients may have clear liquids (water, carbonated beverages, clear teas, apple juice) until 3 hours prior to surgery with a maximum of 20 ounces. - No food from midnight until time of surgery - Infants may have breast milk until 4 hours before surgery, formula 6 hours prior to surgery. - Children will be allowed to drink immediately following surgery. If applicable, please bring a bottle or sippy cup to assist with drinking. Juice, water, soda, and popsicles are readily available. For infants on formula, please bring formula the day of surgery. Pacifiers are allowed. Take the following medications with a SIP of water the morning of surgery: ____FLUOXETINE DO NOT STOP ANY OF YOUR OTHER PRESCRIPTION MEDICATIONS PRIOR TO SURGERY ?EXCEPT THE FOLLOWING Medications to discontinue per physician ASPIRIN 7 DAYS PRE OP PER DR SIMONS . LAST DOSE 10/17/22. ALL VITAMINS/SUPPLEMENTS 3 DAYS PRE OP .LAST DOSE__10/22/22 Please no make-up, nail kazakh, hairspray, perfume, deodorant, or body powder the day of surgery. No jewelry (including any body piercings) or valuables the day of surgery, leave them at home. Please take a shower or bath the night before, or the morning of, surgery with an antibacterial soap. Wear comfortable, loose fitting clothing. Children are encouraged to wear pajamas. - Jewelry must be removed prior to entering the operating room. Rings and piercings that are not removed may be cut off. - The hospital will not accept responsibility for valuables. - Please leave all valuables, including medications, at home the day of surgery. If you are going home after surgery, a licensed class c truck driver must drive you home. - NO public transportation without another adult if you receive anesthesia. - We recommend that an adult stay with you for 24 hours following discharge. - We also recommend that you do not drive, make important decision, drink alcoholic beverages, or take any drugs that were not prescribed by your health care provider for at least 24 hours after your discharge time. Follow any additional instructions given to you from your surgeon. If you or anyone in your household have experienced Covid symptoms in the past week, please notify your surgeon or the nurse liaison at the phone number below for possible testing. Telephone instructions given to _PATIENT and asked if any additional questions and then verbalized understanding. Patient advised to call surgeon office or pre surgery nurse liaison [phone] if any additional questions.
[2022-10-16 10:34] VITALS: BMI 36.3
--- NOTE | 2022-10-24 14:22 | WPDANESEPPF ---
Anes - Initial Pre Proc Eval Procedure: Operation Date: 10/25/22 07:30 Proposed Procedures p Left Custom Total Knee Arthroplasty - Clyde Gastelum MD Date/Time: 10/24/22 14:22 Surgeon: Clyde Gastelum MD Pre Op Diagnosis: primary oa left knee Patient Data Age: 67 Gender: F Height: 1.68 m Weight: 102.1 kg Allergies Allergy/AdvReac Type Severity Reaction Status Date / Time No Known Allergies Allergy Mild Verified 10/25/22 06:46 Home Medications Medication Instructions Recorded Confirmed Type multivitamin 1 tablet PO DAILY 01/09/21 10/25/22 History lisinopril 20 mg tablet 20 mg PO DAILY #90 tabs 05/14/22 10/25/22 Rx acetaminophen 500 mg tablet 1,000 mg PO Q6H PRN Pain 05/23/22 10/25/22 History coenzyme Q10 100 mg capsule 100 mg PO DAILY 05/23/22 10/25/22 History (CoQ-10) cyclobenzaprine 10 mg tablet 10 mg PO TID PRN Muscle Spasm 05/23/22 10/25/22 History esomeprazole magnesium 20 mg 20 mg PO DAILY 05/23/22 10/25/22 History capsule,delayed release (Nexium) aspirin 81 mg tablet,delayed 81 mg PO BID 14 days #28 tabs 06/14/22 10/25/22 Rx release fluoxetine 20 mg capsule See Rx Instructions .Route 08/10/22 10/25/22 Rx .COMPLEX #90 caps triamterene 37.5 1 cap PO DAILY #90 caps 08/10/22 10/25/22 Rx mg-hydrochlorothiazide 25 mg capsule atorvastatin 80 mg tablet 80 mg PO DAILY #90 tabs 09/24/22 10/25/22 Rx ECG: Date of Service: 04/16/22 Procedure(s): CA 12 lead EKG Accession Number(s): [id number] cc: ~ ? Measurements Intervals? [place]? Rate: ? 80 ? P:? 67 [place]: ? 177? QRS:? 3 QRSD: ? 98 ? T:? 60 QT: ? 402? QTc:? 465? Interpretive Statements SINUS RHYTHM NO PREVIOUS ECG AVAILABLE FOR COMPARISON Electronically Signed On 04-17-2022 16:23:38 CDT by Juliette Sarah M.D. Patient hx anesthesia problems: none Family hx anesthesia problems: none Results Review: All pre-operative results and documents have been reviewed as part of the pre-operative evaluation. [facility] Past Medical History Medical History Acid reflux Arthritis of both knees Depression Essential hypertension Hyperglycemia Hyperlipidemia MVP (mitral valve prolapse) Obesity Palpitations Trigger finger Surgical History Surgical History H/O: hysterectomy History of total right knee replacement (~06/14/22) Social History Social History Smoking packs per day: 1 Smoking cigarettes per day: 20.0 Years smoked: 30 Smoking pack-years: 30.00 Smoking status: Former smoker Tobacco type: cigarettes Second hand tobacco smoke exposure: No Smoking end date: 09/09/12 Additional smoking assessment comments: DENIES ANY FORM OF TOBACCO USE Alcohol intake: current Drinks per week: 10 Alcohol use details: STATES 6-10 DRINKS/WEEK Substance use: never Substance use type: does not use Lack of Transportation: No Lack of Food: Never True Current Housing: I Have Housing Concerned About Future Housing: No Difficulty Paying Gas/Electric Bills: No Difficulty Paying for Meds: No Currently Unemployed: No Education: High School Diploma/GED Difficulty w/ Childcare or Family Care: No Living arrangements: with friend(s) Spiritual care concerns: No Anes - Eval Final PreProcedure Day of Procedure 10/24/22 14:22 Patient weight: obese Heart: regular rate and rhythm Lungs: clear to auscultation and normal air movement Airway: Mallampati scale class II Neurological: alert and oriented Last oral intake: >/= 8 hours ASA classification: III Emergen
--- NOTE | 2022-10-24 14:23 | WPDANESPNB ---
Anes - Peripheral Nerve Block Date/Time: 10/24/22 14:23 I have discussed with the patient/family/POA the placement of a peripheral nerve block for post-operative pain management, including associated risks, benefits, complications, and side effects. Alternative methods of post-operative analgesia were detailed. Questions were solicited and answers provided to the satisfaction of the patient/family/POA. Time-Out: A pre-procedural Time-Out was completed immediately before starting the procedure and confirmed: Patient Identification, Site, Procedure, Patient Position and the Availability of Requisite Equipment. Clinical Indications: Acute post-operative pain management requested by the operative surgeon. Nerve Block Insertion Note Anes-nerve block: adductor canal left Patient position: supine Skin prep: chlorhexidine Needle: 22 gauge, stimulating, insulated echogenic needle. Needle length: 80 mm Technique: ultrasound Technique comment: in plane Injectate: bupivacaine 0.25% with epi 5 mcg/ml (30cc) Observations: tolerated well Complications: none Procedure start time:: 725 Procedure end time:: 730
[2022-10-25] VITALS (12 sets, daily range): BP systolic 116–170; BP diastolic 67–91; PULSE 68–84; RESP 9–20; TEMP 36–37.1; O2SAT 91–99
--- NOTE | ~2022-10-25 | XR_ITS ---
EXAMINATION: XR knee LT 2V DATE: 10/25/2022 10:15 INDICATION: Total left knee arthroplasty. Postop. TECHNIQUE: 2 views of left knee were obtained. COMPARISON: Left knee radiographs 10/01/2022 FINDINGS: There is a total left knee arthroplasty with patellar resurfacing in near-anatomic alignmen t. No fracture. There is gas in the knee joint and soft tissues, consistent with recent surgery. IMPRESSION: 1. Total left knee arthroplasty in near-anatomic alignment. Reviewed, dictated and finalized at location A. NESS SYSTEMS DEVELOPER
[2022-10-25] MEDS: ACETAMINOPHEN 500 MG TABLET 1000 MG PO (06:53)
[2022-10-25] MEDS: TRANEXAMIC ACID 1,000MG/ISO100 1,000 MG/100 ML BAG 200 MG IVPB (07:02)
--- NOTE | 2022-10-25 07:14 | WPDHPUPDATE1 ---
History and Physical Update Update Date/Time: 10/25/22 07:14 History and Physical has been reviewed, including an updated exam of the patient. There are NO changes in the patient's condition. Risks, benefits, and alternatives have been discussed and questions answered. Patient agrees to proceed with procedure.
[2022-10-25] MEDS: LACTATED RINGERS 1,000 ML 30 ML IV CONT ×2 (07:20→10:05)
[2022-10-25] MEDS: ceFAZolin 2 GM/D5W 50 ML 2 GM/50 ML BAG IVPB ×3 (07:36→23:07)
--- NOTE | 2022-10-25 07:42 | P.OP_ITS ---
Procedure Note - Detailed Date of Procedure 10/25/22 Pre-op Diagnosis primary oa left knee Post-op Diagnosis Same Procedure Performed Total knee arthroplasty, left. Surgeon Clyde Gastelum MD Back Roll Lathe Operator Ilana Baig PA-C Anesthesia General and Regional (Subsartorial block.) Findings Very good bone quality. Moderate medial release was required. Description of Procedure Preoperative antibiotics were given. The limb was prepped and draped in the usual sterile fashion with a well-padded tourniquet high on the thigh. The limb was exsanguinated and the tourniquet inflated to 300 mmHg[]. A longitudinal incision was created just medial to the patella. A trivector approach to the knee was performed. Arthrotomy was taken down through the joint capsule. No significant releases were initially taken. The femur was exposed and the F1 jig was applied. The coring tool was used to remove the cartilage for the F2 jig to sit flush with the bone. The jig was pinned and the distal cut carefully taken. Caliper measurements confirmed appropriate bony resections according to the preoperative templated plan. The F4 cutting jig for the femur was applied, at the standard rotation. The AP and anterior chamfer cuts were taken. The F5 jig was applied and the posterior chamfer cuts were taken. The box cut was taken and the PCL resected. The tibia was prepared using the T1 jig, after removing cartilage for the jig contact points. Proper alignment was checked with the alignment jorje. The tibia was cut using the T1u guide. Gap balancing was performed. Gap measurements were taken and the knee was trialed. Excellent alignment and soft tissue balancing was confirmed. The patella was cut for resurfacing. Three lug holes were drilled. Meniscal remnants were removed. The trial components were assembled. Excellent range of motion and proper soft tissue balancing were confirmed throughout the full range of motion. Patellar tracking was excellent. The knee was copiously irrigated periodically throughout the procedure. The real implants were cemented into position. Excess cement was carefully removed. The wound was closed in layers with interrupted #1 Vicryl suture, 2-0 strata fix suture, 0 strata fix suture, 2-0 strata fix suture. Steri-Strips placed on the skin with the knee flexed. Sterile bulky dressing applied. The patient was brought to the recovery room in stable condition. There were no complications. Physician agency sales management assistant, Ilana Baig PA-C, required for surgery; including patient positioning, draping, tissue retraction, maintaining instrument position, wound closure, and dressing placement. Implants Conformis Imprint PS, total knee arthroplasty. Cemented. 7mm insert. 35 mm oval patella. Tourniquet Time 50 Drains No Complications No immediate complications Condition Stable Disposition PACU [facility] Billing Surgery - Charge Forward: Surgery Billing
[2022-10-25] MEDS: GENTAMICIN BONE CEMENT REFOBACIN 1 EACH TOPICAL (08:09)
[2022-10-25] MEDS: fentaNYL CITRATE INJ (*CRX) 100 MCG/2 ML VIAL 25 MCG IV PUSH ×3 (10:20→10:28)
[2022-10-25] MEDS: SODIUM CHLORIDE 0.9% IV 1,000 ML 125 ML IV CONT (11:29)
--- NOTE | 2022-10-25 12:16 | ADMGEN ---
This patient, Stephanie Bhatia, was admitted to 3 [facility] Surg Room 301-01. Report received from CARLOS Coffey. Patient/family oriented to hospital policies and general routines including ID bracelet, bed and alarms, visiting hours, pain management, procedures, bathroom and other care routines, personal items, smoking policy, room service/diet, and visiting hours. Information on how to activate the Rapid Response Team has been discussed. Patient/Family are encouraged to report perceived risks to care and to ask questions if they do not understand what they are told or what they should do.
[2022-10-25] MEDS: oxyCODONE HCL (*CRX) 5 MG TAB IR 10 MG PO ×2 (12:51→16:50)
[2022-10-25] MEDS: SENNA/DOCUSATE SODIUM TABLET 2 TAB PO (16:50)
[2022-10-25] MEDS: MELOXICAM 7.5 MG TABLET PO (16:50)
[2022-10-25] MEDS: ASPIRIN 81 MG ENTERIC TABLET PO (16:51)
[2022-10-25] MEDS: oxyCODONE HCL (*CRX) 5 MG TAB IR PO (22:25)
[2022-10-26 00:02] VITALS: BP 126/54; PULSE 75; RESP 14; TEMP 36.6; O2SAT 96
[2022-10-26] MEDS: oxyCODONE HCL (*CRX) 5 MG TAB IR 10 MG PO ×3 (02:27→10:22)
[2022-10-26 04:42] VITALS: BP 115/60; PULSE 72; RESP 14; TEMP 36.9; O2SAT 97
[2022-10-26 07:24] LABS: Basophils Percent Auto 0.3 % (0.2-1.2); Eosinophils Percent Auto 0.5 % (0-4.4); Hematocrit 30.8 % (37.0-47.0); Hemoglobin 10.1 g/dL (12.0-15.0); Immature Granulocyte Absolute 0.04 K/mm3 (0.00-0.031); Immature Granulocyte Percent A 0.5 % (0-0.5); Lymphocytes Absolute Auto 2.03 K/mm3 (0.9-3.2); Lymphocytes Percent Auto 25.9 % (18.3-44.2); Mean Corpuscular HGB Conc 32.8 g/dl (32-36); Mean Corpuscular Hemoglobin 30.4 pg (26-34); Mean Corpuscular Volume 92.8 fl (80-100); Mean Platelet Volume 9.3 fl (7.4-10.4); Monocytes Absolute Auto 0.8 K/mm3 (0.1-0.6); Monocytes Percent Auto 9.6 % (2.6-8.5); Neutrophils Percent Auto 63.2 % (45.5-73.1); Platelet Count Result 332 k/mm3 (150-375); Red Blood Count 3.32 M/mm3 (4.2-5.4); Red Cell Distribution Width 12.9 % (11.5-14.5); White Blood Count 7.8 K/mm3 (4.5-10.0)
[2022-10-26 07:35] LABS: Anion Gap 5 mmol/L (8-16); Blood Urea Nitrogen 20 mg/dL (7-17); Calcium 8.3 mg/dL (8.4-10.2); Carbon Dioxide 30 mmol/L (22-30); Chloride 97 mmol/L (98-107); Estimated CRCL calculation 83 ml/min; Estimated Glomerular Filt Rate > 60; Glucose 105 mg/dL (65-110); Potassium 3.2 mmol/L (3.4-5.0); Sodium 132 mmol/L (137-145)
[2022-10-26 08:01] VITALS: BP 130/65; PULSE 67; O2SAT 100
[2022-10-26] MEDS: ATORVASTATIN 40 MG TABLET 80 MG PO (08:02)
[2022-10-26] MEDS: SENNA/DOCUSATE SODIUM TABLET 2 TAB PO (08:02)
[2022-10-26] MEDS: MELOXICAM 7.5 MG TABLET PO (08:03)
[2022-10-26] MEDS: polyethylene glycoL 3350 17 GM POWD.PACK PO (08:03)
[2022-10-26] MEDS: PANTOPRAZOLE 40 MG TABLET PO (08:03)
[2022-10-26] MEDS: lisinopriL 20 MG TABLET PO (08:03)
[2022-10-26] MEDS: predniSONE 5 MG TABLET PO (08:03)
[2022-10-26] MEDS: FLUoxetine HCL 20 MG CAPSULE PO (08:03)
[2022-10-26] MEDS: ceFAZolin 2 GM/D5W 50 ML 2 GM/50 ML BAG IVPB (08:03)
[2022-10-26] MEDS: ASPIRIN 81 MG ENTERIC TABLET PO (08:03)
[2022-10-26] MEDS: TRIAMTERENE 37.5 MG/HCTZ 25 MG (MAXZIDE) TABLET 1 TAB PO (08:03)
--- NOTE | 2022-10-26 08:06 | PM.DS ---
DS: Admitting Diagnosis Discharge Date 10/26/22 Admitting Diagnosis OA knee Left DS: Discharge Diagnosis Discharge Diagnosis (1) Status post total left knee replacement: Code(s): Z96.652 - Presence of left artificial knee joint Status: Acute Assessment and Plan: Postop day 1: Left total knee arthroplasty. Patient tolerated procedure well. No complications. Pain manageable with pain medication. No numbness or tingling. We had a lengthy discussion regarding postoperative wound care, limitations, expectations, and exercises. Patient shows good understanding. She has had initial physical therapy and is tolerating it well. DVT prophylaxis: 81 mg baby aspirin b.i.d. for 14 days. Pain medication: Percocet. Meloxicam. Prednisone. Patient has followup appointment with Dr. Gastelum in 3 weeks. DS: Summary Hospital Course Reason for hospitalization: Total knee arthroplasty Hospital Course: Patient tolerated procedure well. Has had initial PT/OT. Status at Discharge Functional status at discharge: uses cane/walker Overall status at discharge: patient is progressing back to baseline Time Spent with Patient Time attestation: Total time spent providing and/or coordinating discharge services: Exam Narrative: 67-year-old overweight female. Resting comfortably in bed. Alert and oriented x3. No acute distress. Wearing compression socks bilaterally. Dressing intact without drainage on Mepilex. Moderate swelling. No ecchymosis. No erythema. No hematoma. Range of motion limited due to pain. Calf nontender. Neurologic status intact. No varicosities. Distal pulses palpable. DS: Data Data Completed and Pending Labs on day of discharge: Labs from last 24 hours 10/26/22 10/26/22 06:45 06:45 WBC 7.8 RBC 3.32 L Hgb 10.1 L Hct 30.8 L MCV 92.8 MCH 30.4 MCHC 32.8 RDW 12.9 Plt Count 332 MPV 9.3 Immature Gran % (Auto) 0.5 Neut % (Auto) 63.2 Lymph % (Auto) 25.9 [place] % (Auto) 9.6 H Eos % (Auto) 0.5 Baso % (Auto) 0.3 Lymph # (Auto) 2.03 [place] # (Auto) 0.8 H Eos # (Auto) 0.0 Baso # (Auto) 0.0 Abs Immat Gran (auto) 0.04 H Absolute Neuts (auto) 5.0 Absolute Nucleated RBC 0.0 Nucleated RBC % 0.0 Sodium 132 L Potassium 3.2 L Chloride 97 L Carbon Dioxide 30 Anion Gap 5 L BUN 20 H Creatinine 0.70 Estim Creat Clear Calc 83 Estimated GFR > 60 Glucose 105 Calcium 8.3 L Discharge Plan Discharge Patient Disposition: Home, Self-Care Discharge Instructions: See green instruction sheets Stand Alone Forms: General Discharge Instructions Follow-up/Referrals: Ilana Baig PA [Physician Nurse Wound Care] - Discharge Medications: New meloxicam 15 mg tablet 15 mg PO DAILY Qty: 30 0RF Rx Instructions: Cut in half. Take 1/2 in morning and 1/2 at night. Take with food. Stop if stomach upset. aspirin 81 mg tablet,delayed release (DR/EC) 81 mg PO BID 14 Days Qty: 28 0RF oxycodone-acetaminophen 5-325 mg tablet 1 - 2 tablet PO Q4-6H MDD 6 PRN (Reason: pain) Qty: 30 0RF prednisone 5 mg tablet 5 mg PO DAILY 21 Days Qty: 21 0RF Continued multivitamin Tablet 1 tablet PO DAILY Label Comments: HS cyclobenzaprine 10 mg Tablet 10 mg PO TID PRN (Reason: Muscle Spasm) esomeprazole magnesium [Nexium] 20 mg Capsule,Delayed Release(Dr/Ec) 20 mg PO DAILY Label Comments: QAM coenzyme Q10 [CoQ-10] 100 mg Capsule 100 mg PO DAILY Label Comments: HS acetaminophen 500 mg Tablet 1,000 mg PO Q6H PRN (Reason: Pain) aspirin 81 mg tablet,delayed release (DR/EC) 81 mg PO BID 14 Days Qty: 28 0RF Label Comments: TAKES ONCE A DAY lisinopril 20 mg tablet 20 mg PO DAILY Qty: 90 3RF Label Comments: QAM fluoxetine 20 mg capsule See Rx Instructions .ROUTE .COMPLEX Qty: 90 1RF Dose Instruction: TAKE 1 CAPSULE
[2022-10-26 08:10] VITALS: PULSE 74; O2SAT 95
[2022-10-26 08:42] VITALS: BP 126/62; PULSE 66; RESP 14; TEMP 36.2; O2SAT 100
== END 2022-10-26 12:05 | disposition home or self-care (01) ==
LOC: ANHSURGERY 09:15 → ANH3MEDSUR 10:59
PROVIDERS: Physician Assistant Surgical; PCP Internal Medicine; Visit Provider Orthopaedic Surgery
PROC: (CPT 27447; principal; 2022-10-25 07:30)
DX: M17.12 Unilateral primary osteoarthritis, left knee (principal); G89.18 Other acute postprocedural pain; I10 Essential (primary) hypertension; E78.5 Hyperlipidemia, unspecified; I34.1 Nonrheumatic mitral (valve) prolapse; K21.9 Gastro-esophageal reflux disease without esophagitis; F32.A Depression, unspecified; Z87.891 Personal history of nicotine dependence; E66.9 Obesity, unspecified; Z68.36 Body mass index [BMI] 36.0-36.9, adult; Z79.82 Long term (current) use of aspirin
CPT/HCPCS: 27447; 64447; 36415; 73560; 80048; 85025; 97110; 97116; 97161; 97165; 97530; A9270; C1713; C1776; J0131; J0171; J0690; J1100; J1170; J1885; J2001; J2250; J2270; J2405; J2704; J2795; J3010; J7030; J7120; J7512